=== PATIENT | male | born 2000 | race Two or more races ===

== ENCOUNTER 2024-07-09 02:39 | Emergency (ER) | payer SELFPAY ==
[~2024-07-09] VITALS: Ht 162.6 cm; Wt 118.2 kg
[2024-07-09 02:53] VITALS: TEMP 98.7
[2024-07-09 05:56] LABS: TROPONIN I-HIGH SENSITIVITY Less Than 4 ng/L (<76)
[2024-07-09] MEDS: IBUPROFEN 400 MG TABLET PO ONE (06:25)
[2024-07-09 07:15] VITALS: BP 115/42; PULSE 84; RESP 16; O2SAT 98
== END 2024-07-09 08:37 | disposition home or self-care (01) ==
LOC: EMS 02:39
DX: R09.1 Pleurisy (principal); J45.909 Unspecified asthma, uncomplicated
CPT/HCPCS: 71045; 84484; 85379; 93005; 99285; 36415-L1; 36415-TC